=== PATIENT | male | born 1995 | race Hispanic/Latino ===

== ENCOUNTER 2020-02-08 19:14 | Emergency (ER) | payer SELFPAY ==
--- NOTE | 2020-02-08 20:16 | RAD ---
LEFT HAND THREE VIEW: 02/08/20 HISTORY: Injury. COMPARISON: None. FINDINGS: There is an obliquely oriented fracture through the distal tuft small finger. Remainder of the hand i s intact. IMPRESSION: Age indeterminate although likely chronic tuft fracture distal phalanx of the small finger as the mar gins are pretty well corticated. Recommend correlation to focal tenderness. POS: HOME
[2020-02-08] MEDS ORDERED: Adacel (T-DAP) 0.5 ML SYRINGE ONE (20:29)
[2020-02-08] MEDS ORDERED: Bupivacaine 0.5% 10 ML VIAL ONE (20:41)
[2020-02-08] MEDS ORDERED: Bacitracin 1 PK ONE (21:42)
== END 2020-02-08 22:07 | disposition home or self-care (01) ==
LOC: ERS 19:14
DX: S62.637A Displaced fracture of distal phalanx of left little finger, initial encounter for closed fracture (principal); S61.213A Laceration without foreign body of left middle finger without damage to nail, initial encounter; F17.210 Nicotine dependence, cigarettes, uncomplicated; W20.8XXA Other cause of strike by thrown, projected or falling object, initial encounter
CPT/HCPCS: 12001; 90471; 90715; J3490

== ENCOUNTER 2020-02-15 13:40 | Emergency (ER) | payer SELFPAY | END 2020-02-15 14:21 | disposition home or self-care (01) | LOC: ERS 13:40 | DX: S61.213D Laceration without foreign body of left middle finger without damage to nail, subsequent encounter (principal); F17.210 Nicotine dependence, cigarettes, uncomplicated; X58.XXXD Exposure to other specified factors, subsequent encounter ==

== ENCOUNTER 2020-06-29 00:33 | Emergency (ER) | payer SELFPAY ==
[2020-06-29] MEDS ORDERED: Lidocaine 1% (PF) 30 ML VIAL ONE (01:13)
== END 2020-06-29 02:39 | disposition home or self-care (01) ==
LOC: ERS 00:33
DX: S61.411A Laceration without foreign body of right hand, initial encounter (principal); F17.210 Nicotine dependence, cigarettes, uncomplicated; W26.0XXA Contact with knife, initial encounter
CPT/HCPCS: 12002; J2001

== ENCOUNTER 2021-06-04 11:25 | Emergency (ER) | payer SELFPAY | END 2021-06-04 13:44 | disposition home or self-care (01) | LOC: ERS 11:25 | DX: S02.32XA Fracture of orbital floor, left side, initial encounter for closed fracture (principal); F17.210 Nicotine dependence, cigarettes, uncomplicated; Y04.0XXA Assault by unarmed brawl or fight, initial encounter | CPT/HCPCS: 70450; 70486; 72125 ==

== ENCOUNTER 2022-01-21 23:56 | Emergency (ER) | payer SELFPAY ==
[2022-01-22] MEDS ORDERED: Boostrix 0.5 ML (Tdap) VIAL ONE (00:37)
== END 2022-01-22 01:26 | disposition home or self-care (01) ==
LOC: ERS 23:56
DX: S91.332A Puncture wound without foreign body, left foot, initial encounter (principal); W22.8XXA Striking against or struck by other objects, initial encounter; Z23 Encounter for immunization; F17.210 Nicotine dependence, cigarettes, uncomplicated
CPT/HCPCS: 90471; 90715